=== PATIENT | male | born 1960 | race Caucasian/White ===

== ENCOUNTER 2024-07-25 12:50 | Emergency (ER) | payer MEDICAID, SELFPAY ==
[2024-07-25 13:05] VITALS: BP 144/82; PULSE 69; TEMP 37; O2SAT 95; BMI 36.9
--- NOTE | 2024-07-25 14:29 | XR_ITS ---
The [place] [id number] Patient Name: ERNESTINE BOYD MRN: [id number] date: 1960 Sex: M Assigned Patient Location: ER Current Patient Location: ER Accession/Order Number: [id number] Exam Date: 07/25/2024 15:35 Report Date: 07/25/2024 15:35 At the request of: GARTH ESQUEDA MD Procedure: XR knee KEVIN 4V Bilateral knee series 4 views each Reason for exam: Chronic bilateral knee pain. COMPARISON: None. FINDINGS: No knee joint effusion. Mild degenerative changes of both knees without acute bony process. XR/XR knee KEVIN 4V IMPRESSION: Mild degenerative changes of both knees without acute bony process. Impression dictated by: Donavon Mcghee Jr., D.OSuellen 07/25/2024 3:35 PM Dictation Location: [place] [address] Electronically authenticated by: [id number] Y Date: 07/25/2024 15:35
--- NOTE | 2024-07-25 14:29 | US_ITS ---
The [address] [address] Patient Name: ERNESTINE BOYD MRN: [id number] date: 1960 Sex: M Assigned Patient Location: ER Current Patient Location: ER Accession/Order Number: [id number] Exam Date: 07/25/2024 15:21 Report Date: 07/25/2024 15:23 At the request of: GARTH ESQUEDA MD Procedure: US scrotum Scrotal ultrasound Reason for exam: Enlarged scrotum for 2 years. Comparison: none Technique: Grayscale, color Doppler and spectral Doppler images of the scrotal contents were obtained. Findings: The right testicle measures 4.8 x 3.7 x 2.6 cm. No evidence of testicular mass or microlithiasis. Normal arterial and venous Doppler waveforms. Epididymal cyst measuring 1.8 cm. Large right-sided hydrocele containing debris. The left testicle measures 6.0 x 3.3 x 2.4 cm. No evidence of testicular mass or microlithiasis. Normal arterial and venous Doppler waveforms. Epididymal cysts are noted largest measuring 1.3 cm. No hydrocele. US/US scrotum Impression: No evidence of testicular mass, torsion, orchitis or epididymitis. Bilateral epididymal cysts. Large right-sided hydrocele containing debris. Impression dictated by: Donavon Mcghee Jr., D.O. 07/25/2024 3:23 PM Dictation Location: [place] [address] Electronically authenticated by: [id number] Y Date: 07/25/2024 15:23
[2024-07-25 14:38] LABS: Glucometer 116 mg/dL (74-106)
[2024-07-25 14:56] LABS: Bilirubin Urine SMALL (NEGATIVE); Blood Urine NEGATIVE (NEGATIVE); Clarity Urine CLEAR (CLEAR); Color Urine YELLOW (YELLOW); Glucose Urine UA NEGATIVE (NEGATIVE); Ketones Urine TRACE mg/dL (NEGATIVE); Leukocyte Esterase Urine NEGATIVE (NEGATIVE); Nitrite Urine NEGATIVE (NEGATIVE); Protein Urine 30 mg/dL (NEG/TRACE); pH Urine 6.5 (5.0-9.0)
[2024-07-25 15:15] LABS: RBC Urine 0-2 #/HPF (0-2); WBC Urine 0-2 #/HPF (NONE SEEN)
[2024-07-25 15:16] LABS: Bacteria Urine TRACE #/HPF (NONE SEEN); Cast Seen? NONE SEEN #/LPF (NONE SEEN); Crystals Seen? None Seen #/HPF (None Seen); Mucus Urine LARGE (NONE SEEN); Squamous Epithelial Cell Urine FEW #/LPF (NONE/RARE); Urine Culture Indicated NO
--- NOTE | 2024-07-25 17:36 | ED.GENADUL1 ---
HPI HPI - General Adult General Chief complaint: Extremity Problem, Nontraumatic Stated complaint: ABCESS GROIN FREQUENT URINATING Time Seen by Provider: 07/25/24 14:29 Source: patient Mode of arrival: walk-in Limitations: no limitations History of Present Illness HPI narrative: Patient is a 63-year-old male who is presenting to the ER with multiple ongoing chronic complaints. Patient is very pleasant. Daughter and grandson at bedside. Patient has not seen a doctor in over 20 years. Patient has no medical insurance. Patient has been having ongoing chronic bilateral knee pain, right greater than. 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 Patient has never seen a orthopedic surgeon for his bilateral knee pain. Patient has not seen a urologist for his chronic swelling to his right testicle. Patient has not had any blood test or any testing by a physician at all in over 20 years. Daughter was hoping to have patient checked out and evaluated Patient was in the ER for several hours. I was not able to get the patient quickly because he had a lot of ongoing chronic concerns there is multiple other patients that had the higher triage levels were more critical. Patient was understanding of this. Patient was going to leave AGAINST MEDICAL ADVICE after his test have been done. I asked the patient to please wait 5 or 10 more minutes if I can assess him. Patient did not want to wear a gown anymore, he got back into his jeans and close and boots. All systems are negative except as noted/marked. All systems reviewed and otherwise negative. Nurses note and vital signs reviewed and patient is not hypoxic. Medic screening evaluation was done on patient because he was dressed and got out of his gown, he stated he did not want to be in his gown any longer. General: The patient appears well and in no apparent distress. Patient is resting comfortably on cart. Patient is not toxic, lethargic, or listless patient is very pleasant.. Skin: Warm, dry, no pallor noted. There is no rash noted. No petechiae, purpura. Head: Normocephalic, atraumatic Eye: Normal conjunctiva, no drainage, EOMI. PERRL Ears, Nose, Mouth, and Throat: oral mucosa is moist. Nares patent. Mouth without vesicles. Cardiovascular: Regular Rate and Rhythm, no murmur, gallop, rub Respiratory: Patient is in no distress, no accessory muscle use, lungs are clear to auscultation, no wheezing, rales or rhonchi Back: non-tender, no CVA tenderness bilaterally to percussion. No CT LS midline pain GI: no tenderness to palpation, no masses appreciated. No rebound, guarding, or rigidity noted. No distention : Patient was wearing jeans and his T-shirt, he was not in a gown. Patient did not want to get back into a gown. I was not able to evaluate patient's testicles. Patient stated he has large swelling to the right side of his scrotum, no redness to the scrotum or penis. Patient states he has no rashes or lesions. Musculoskeletal: Patient has full range of motion of all of the extremities, patient states he has mild to moderate pain with flexion extension of both knees, right greater than left. No obvious swelling or deformity. Patient is wearing jeans, he did not want to get back into a gown, thorough evaluation was not able to be done because patient stood in the room the entire time while speaking to him about the results of his test. Medical screening evaluation was done. No motor, sensory, or focal neurological deficits Neurological: A&O x4, normal speech Psychiatric: Cooperative Related Data Home Medications ?Medication ?Instructions ?Recorded ?Confirmed No Known Home Medications 07/25/24 07/25/24 Allergies Allergy/AdvReac Type Severity Reaction Status Date / Time No Known Drug Allergies Allergy Verified 07/25/24 13:05 Opioid HPI Opioid Management Most Recent Opioid Data: Last Pain Scale 7 Today, 13:05 PFSH PFSH Social History Little interest or pleasure in doing things: not at all Feeling down, depressed, or hopeless: not at all Exam Constitutional Vital Signs, click to edit/add: Last Vital Signs Temp 98.6 F 07/25/24 13:05 Pulse 69 07/25/24 13:05 Resp 20 07/25/24 13:05 BP 144/82 H 07/25/24 13:05 Pulse Ox 95 07/25/24 13:05 O2 Del Method Room Air 07/25/24 13:05 Course Vital Signs Vital signs: Vital Signs Temperature 98.6 F 07/25/24 13:05 Pulse Rate 69 07/25/24 13:05 Respiratory Rate 20 07/25/24 13:05 Blood Pressure 144/82 H 07/25/24 13:05 Pulse Oximetry 95 07/25/24 13:05 Oxygen Delivery Method Room Air 07/25/24 13:05 Temperature 98.6 F 07/25/24 13:05 Pulse Rate 69 07/25/24 13:05 Respiratory Rate 20 07/25/24 13:05 Blood Pressure 144/82 H 07/25/24 13:05 Pulse Oximetry 95 07/25/24 13:05 Oxygen Delivery Method Room Air 07/25/24 13:05 Medical Decision Making MDM Narrative Medical decision making narrative: Initially when patient presented, aorta urine sample, ultrasound of his scrotum, and x-rays of his knees. Patient was going to leave AGAINST MEDICAL ADVICE, patient did wait 5 or 10 more minutes for me to evaluate the patient before he left. Patient was given a copy of the x-ray of his knees and ultrasound report of his scrotum. Patient urine showed protein in his urine, trace of ketones. Small bilirubin with urine urobilinogen and no obvious signs of UTI. Trace white blood cells and trace bacteria. Patient has no urinary frequency urgency or burning. 10-minute discussion was had on patient's chronic knee pain, following up with orthopedic surgery, possibility of cartilage tear//Meniscus tear. Patient states he has pain getting out of the car, pain going up and down stairs with his knees. Patient is recommended ice, anti-inflammatories, following up with orthopedic surgery. Patient was educated on large right hydrocele. Patient understands to follow-up with urology. Patient's daughter was very tearful that there is no obvious signs of cancer. Patient daughter chief concern was testicular cancer. Patient daughter entice patient to come into the ER today, he did not want to but did for his daughter. Patient was thankful for help, very understanding of the length of stay in the critical patient the volume we had today along with me being the sole provider with no assistance from a CARLO today to see patients. Patient was understanding and thankful for help. Patient knows he needs establish PCP, follow-up with urology and orthopedic surgery. Lab Data Labs: Lab Results 07/25/24 07/25/24 Range/Units 14:37 14:41 Urine Color Yellow (YELLOW) Urine Clarity Clear (CLEAR) Urine pH 6.5 (5.0-9.0) Ur Specific [place] 1.020 (1.005-1.025) Urine Protein 30 A (NEG/TRACE) mg/dL Urine Glucose (UA) Negative (NEGATIVE) mg/dL Urine Ketones Trace A (NEGATIVE) mg/dL Urine Occult Blood Negative (NEGATIVE) Urine Nitrite Negative (NEGATIVE) Urine Bilirubin Small A (NEGATIVE) Urine Urobilinogen 4.0 A (0.2-1.0) EU/dL Ur Leukocyte Esterase Negative (NEGATIVE) Urine RBC 0-2 (0-2) #/HPF Urine WBC 0-2 A (NONE SEEN) #/HPF Ur Squamous Epith Cells Few A (NONE/RARE) #/LPF Urine Crystals None seen (None Seen) #/HPF Urine Bacteria Trace A (NONE SEEN) #/HPF Urine Casts None seen (NONE SEEN) #/LPF Urine Mucus Large A (NONE SEEN) Ur Culture Indicated? No POC Glucose 116 H (74-106) mg/dL Discharge Plan Discharge Chief Complaint: Extremity Problem, Nontraumatic Clinical Impression: Hydrocele of testis, Bilateral chronic knee pain, Asymptomatic proteinuria Patient Disposition: Home, Self-Care Time of Disposition Decision: 17:29 Condition: Fair Prescriptions / Home Meds: No Action No Known Home Medications Print Language: Z[place] Instructions: Testicle Pain (ED), Knee Pain (ED), Meniscus Tear (ED), Hydrocelectomy (DC) Additional Instructions: I did not have education on testicular hydrocele. You have a large hydrocele on the right side of your scrotum. You have small epididymal cyst as well. Education was done at bedside and on discharge paperwork. I gave you education on removal of hydrocele for educational purposes only. You need to follow-up with urology for further treatment and intervention as indicated. I have given you orthopedic surgery to follow-up with. You most likely have cartilage tear/meniscus tear in your knees to have the inflammation and swelling come and go. Use ice 20 minutes on, 20 minutes off to your knees when you are having acute flareups. They sell [id number] Voltaren gel which is an anti-inflammatory gel that can help with your knee pain on flareups as well. A PCP provider list has been given to to follow-up with. You may also follow-up with the health department in the county that you live in. Alternate Tylenol and either Motrin, Advil, or ibuprofen every 4 hours to help with pain. Maximum dose of Tylenol is 3000 mg a day. Maximum dose of either Motrin, Advil, or ibuprofen is 2400 mg a day. Referrals: Physician,Non-Staff, MD [Primary Care Provider] - 1 week Discharge Date/Time: 07/25/24 17:42
== END 2024-07-25 17:42 | disposition home or self-care (01) ==
PROVIDERS: Emergency Provider Emergency Medicine
DX: N43.3 Hydrocele, unspecified (principal); M25.561 Pain in right knee; M25.562 Pain in left knee; R80.8 Other proteinuria
CPT/HCPCS: 36415; 73564; 76870; 81001; 99285